=== PATIENT | female | born 1975 | race African-American/Black ===

== ENCOUNTER 2019-08-26 08:54 | Outpatient (CLI) | payer OTHER ==
[~2019-08-26 08:54] MED LIST: AMOX500C85 PO; FLUT0.05 NAS; LORA10TA3 PO; RANI150T78 PO; [UNRECOGNIZED DRUG - OTHER] EX
== END 2019-08-26 19:13 | disposition home or self-care (01) ==
LOC: CT 08:54
DX: N39.0 Urinary tract infection, site not specified (principal); R31.29 Other microscopic hematuria; R10.9 Unspecified abdominal pain; M54.9 Dorsalgia, unspecified